=== PATIENT | female | born 1935 | race American Indian/Alaskan Native ===

== ENCOUNTER 2019-06-05 19:22 | Observation (INO) | payer MEDICARE ==
[2019-06-05] MEDS ORDERED: ASPIRIN 325 MG TAB PO ONE (20:36)
--- NOTE | 2019-06-05 20:38 | Event Note ---
ED Screening Note Date of service: 06/05/19 Time: 20:34 ED Screening Note: This is a 83 y.o. F. that presents to the ER with left sided chest pain since last night. PMH DM2, HLD, CHF, and HTN Reports pain as sharp and radiating to LUE. She took pain medication w/o no improvement of pain. This initial assessment/diagnostic orders/clinical plan/treatment(s) is/are subject to change based on patients health status, clinical progression and re- assessment by fellow clinical providers in the ED. Further treatment and workup at subsequent clinical providers discretion. Patient/guardian urged not to elope from the ED as their condition may be serious if not clinically assessed and managed. Initial orders include: Labs, EKG, & CXR
--- NOTE | 2019-06-05 21:31 | XRay Report ---
CHEST 1 VIEW 9:05 PM INDICATION / CLINICAL INFORMATION: Left chest pain for 2 days. COMPARISON: None available. FINDINGS: SUPPORT DEVICES: None. HEART / MEDIASTINUM: The heart size and pulmonary vasculature are normal. There is mild aortic tortuo sity without aneurysm. LUNGS / PLEURA: There is mild linear opacity in the right lower lung. The lungs are otherwise clear. No pneumothorax. ADDITIONAL FINDINGS: No significant additional findings. IMPRESSION: Mild right basilar subsegmental atelectasis. Signer Name: Vinod Morales MD Signed: 06/05/2019 9:26 PM Workstation Name: [id number]
[2019-06-05 22:02] LABS: Basophils # (Auto) 0.1 K/mm3 (0.0-0.1); Basophils % (Auto) 1.2 % (0.0-1.8); Eosinophils # (Auto) 0.2 K/mm3 (0.0-0.4); Eosinophils % (Auto) 4.5 % (0.0-4.3); Hematocrit 41.6 % (30.3-42.9); Hemoglobin 13.2 gm/dl (10.1-14.3); Lymphocytes # (Auto) 2.1 K/mm3 (1.2-5.4); Lymphocytes % (Auto) 40.8 % (13.4-35.0); Mean Corpuscular HGB Conc 32 % (30-34); Mean Corpuscular Volume 87 fl (79-97); Monocytes # (Auto) 0.5 K/mm3 (0.0-0.8); Monocytes % (Auto) 9.8 % (0.0-7.3); Platelet Count 199 K/mm3 (140-440); Red Blood Count 4.77 M/mm3 (3.65-5.03); Red Cell Distribution Width 15.5 % (13.2-15.2)
[2019-06-05 22:25] LABS: BUN/Creatinine Ratio 22; Blood Urea Nitrogen 20 mg/dL (7-17); Calcium 9.3 mg/dL (8.4-10.2); Hemolysis Index 5
[2019-06-05] MEDS ORDERED: ONDANSETRON 4 MG/2 ML INJ IV ONE (22:51)
[2019-06-05] MEDS ORDERED: fentaNYL 100 MCG/2 ML INJ IV ONE (22:51)
[2019-06-05] MEDS ORDERED: cloNIDine 0.2 MG TAB PO ONE (22:51)
[2019-06-05] MEDS ORDERED: NITROGLYCERIN 2% OINT 1 GM TP ONE (22:51)
--- NOTE | 2019-06-05 22:55 | Emergency Department Report ---
HPI - General Chief Complaint: Chest Pain Time Seen by Provider: 06/05/19 20:34 - HPI HPI: Room 3 The patient is an 83-year-old female presenting with chief complaint of chest pain. The patient states for past 2 days she's had a constant pain in her left chest described as sharp in nature and radiating to the left upper extremity. Patient denies shortness of breath, nausea/vomiting or diaphoresis. The patient currently gives her pain score of 7/10. Patient states she's never had a stress test or cardiac catheterization Location: [See above] Duration: [See above] Quality: [See above] Severity: [See above] Timing: [See above] Context: [See above] Modifying factors: [See above] Associated signs and symptoms: [see above] ED Past Medical Hx - Past Medical History Previous Medical History?: Yes Hx Diabetes: Yes Additional medical history: cardiomyopathy - Surgical History Past Surgical History?: No - Family History Family history: no significant - Social History Smoking Status: Never Smoker Substance Use Type: None - Medications Home Medications: Home Medications Medication Instructions Recorded Confirmed Last Taken Type Insulin NPH Hum/Reg Insulin Hm 17 unit SQ BID 12/22/18 12/22/18 Unknown History [Novolin 70-30 Flexpen] Aspirin [Aspirin BABY CHEW TAB] 81 mg PO QDAY #30 tab.chew 12/24/18 Unknown Rx AtorvaSTATin [Lipitor] 20 mg PO QHS #30 tablet 12/24/18 Unknown Rx Pantoprazole [Protonix TAB] 40 mg PO QDAY #30 tablet 12/24/18 Unknown Rx ED Review of Systems ROS: Stated complaint: CHEST PAIN Other details as noted in HPI Constitutional: denies: diaphoresis Eyes: denies: eye pain ENT: denies: throat pain Respiratory: denies: shortness of breath Cardiovascular: chest pain Endocrine: no symptoms reported Gastrointestinal: denies: nausea, vomiting Genitourinary: denies: dysuria Musculoskeletal: denies: back pain Neurological: denies: headache Physical Exam - Physical Exam Vital Signs: Vital Signs 06/05/19 06/05/19 19:27 20:35 Temperature 98.3 F 98.3 F Pulse Rate 89 86 Respiratory 18 18 Rate Blood Pressure 173/90 173/90 O2 Sat by Pulse 99 99 Oximetry Physical Exam: GENERAL: The patient is well-developed well-nourished female lying on stretcher not appearing to be in acute distress. [] HEENT: Normocephalic. Atraumatic. Extraocular motions are intact. Patient has moist mucous membranes. NECK: Supple. Trachea midline CHEST/LUNGS: Clear to auscultation. There is no respiratory distress noted. HEART/CARDIOVASCULAR: Regular. There is no tachycardia. There is no gallop rub or murmur. 2+ radial pulses bilaterally ABDOMEN: Abdomen is soft, nontender. Patient has normal bowel sounds. There is no abdominal distention. SKIN: There is no rash. There is no diaphoresis. NEURO: The patient is awake, alert, and oriented. The patient is cooperative. The patient has normal speech MUSCULOSKELETAL: There is no evidence of acute injury. ED Course Vital Signs 06/05/19 06/05/19 19:27 20:35 Temperature 98.3 F 98.3 F Pulse Rate 89 86 Respiratory 18 18 Rate Blood Pressure 173/90 173/90 O2 Sat by Pulse 99 99 Oximetry ED Medical Decision Making - Lab Data Result diagrams: 06/05/19 21:26 06/05/19 21:26 Laboratory Tests 06/05/19 06/05/19 21:26 21:26 WBC 5.3 RBC 4.77 Hgb 13.2 Hct 41.6 MCV 87 MCH 28 MCHC 32 RDW 15.5 H Plt Count 199 Lymph % (Auto) 40.8 H [place] % (Auto) 9.8 H Eos % (Auto) 4.5 H Baso % (Auto) 1.2 Lymph # 2.1 [place] # 0.5 Eos # 0.2 Baso # 0.1 Seg Neutrophils % 43.7 Seg Neutrophils # 2.3 Sodium 139 Potassium 5.1 H Chloride 101.8 Carbon Dioxide 28 Anion Gap 14 BUN 20 H Creatinine 0.9 Estimated GFR > 60 BUN/Creatinine Ratio 22 Glucose 182 H Calcium 9.3 Troponin T < 0.010 - EKG Data -: EKG Interpreted by Me EKG shows normal: sinus rhythm Rate: normal - EKG Data When compared to previous EKG there are: previous EKG unavailable Interpretation: other (no ischemic changes seen) - Radiology Data Radiology results: report reviewed (chest x-ray), image reviewed (chest x-ray) interpreted by me: Chest x-ray-right lower lobe atelectasis. No pneumothorax [facility] [address] [place] [address] XRay Report Signed Patient: KM WOODARD MR#: [id number] 89 : 1935 Acct:[id number] Age/Sex: 83 / F ADM Date: 06/05/19 Loc: ED Attending Dr: Ordering Physician: ZOIE AHUMADA Date of Service: 06/05/19 Procedure(s): XR chest 1V ap Accession Number(s): [id number] cc: ZOIE AHUMADA Fluoro Time In Minutes: CHEST 1 VIEW 9:05 PM INDICATION / CLINICAL INFORMATION: Left chest pain for 2 days. COMPARISON: None available. FINDINGS: SUPPORT DEVICES: None. HEART / MEDIASTINUM: The heart size and pulmonary vasculature are normal. There is mild aortic tortuosity without aneurysm. LUNGS / PLEURA: There is mild linear opacity in the right lower lung. The lungs are otherwise clear. No pneumothorax. ADDITIONAL FINDINGS: No significant additional findings. IMPRESSION: Mild right basilar subsegmental atelectasis. Signer Name: Vinod Morales MD Signed: 06/05/2019 9:26 PM Workstation Name: [id number] Transcribed By: RT Dictated By: Vinod Morales MD Electronically Authenticated By: Vinod Morales MD Signed Date/Time: 06/05/192125 DD/ 24 TD/TT: - Differential Diagnosis ACS, pericarditis, GERD Critical care attestation.: If time is entered above; I have spent that time in minutes in the direct care of this critically ill patient, excluding procedure time. ED Disposition Clinical Impression: Chest pain Disposition: OP ADMIT IP TO THIS HOSP Is pt being admited?: Yes Does the pt Need Aspirin: Yes Condition: Fair Instructions: Chest Pain (ED) Referrals: PRIMARY CARE, [Primary Care Provider] - 3-5 Days Time of Disposition: 23:00 (hospitalist paged (Dr Kate)) GAEL score - Gael Score Age > 65: (1) Yes Aspirin use within the Past 7 Days: (1) Yes 3 or more CAD Risk Factors: (0) No 2 or more Angina events in past 24 hrs: (0) No Known CAD with more than 50% Stenosis: (0) No Elevated Cardiac Markers: (0) No ST Deviation Greater than 0.5mm: (0) No
[2019-06-05] MEDS ORDERED: ASPIRIN 325 MG TAB ONE (23:10)
[2019-06-06] MEDS ORDERED: ACETAMINOPHEN 325 MG TAB PO PRN (00:16)
[2019-06-06] MEDS ORDERED: ONDANSETRON 4 MG/2 ML INJ IV PRN (00:16)
[2019-06-06] MEDS ORDERED: MORPHINE 2 MG/1 ML INJ IV PRN (00:16)
[2019-06-06] MEDS ORDERED: SODIUM CHLORIDE 0.9% 1000 ML 1,000 ML IV SCH (01:00)
[2019-06-06] MEDS ORDERED: HYDROcodone/ACETAMINOPHEN 5-325 MG TAB ONE (01:28)
[2019-06-06] MEDS: HYDROcodone/ACETAMINOPHEN 5-325 MG TAB PO PRN ×2 (01:35→13:16)
[2019-06-06] MEDS ORDERED: hydrALAZINE 20 MG/1 ML INJ IV PRN (02:26)
[2019-06-06] MEDS ORDERED: DEXTROSE 50% IN WATER (25GM) 50 ML SYRINGE IV PRN (02:30)
--- NOTE | 2019-06-06 02:38 | History and Physical Report ---
History of Present Illness Date of examination: 06/06/19 Date of admission: 06/06/19 00:16 Chief complaint: Chest pain History of present illness: Patient is a 83-year-old -[place] female with a history of diabetes mellitus type 2 who presented to the ED on account of a day history of left- sided chest pain. She described it as sharp in character, rated 10 over 10, radiates into the left arm and constant in duration. No known aggravating or relieving factors. She has associated lightheadedness. She denies shortness of breath, palpitation, diaphoresis, leg swelling, cough, fever, chills, headaches, nausea, vomiting, syncope or loss of consciousness. No abdominal pain, constipation, diarrhea, dysuria frequency. No known prior history of stress t est. Past History Past Medical History: diabetes, hyperlipidemia Past Surgical History: hysterectomy Social history: no significant social history (she denies tobacco, alcohol or illicit drug use) Family history: other (no known family history of sudden cardiac or heart attack) Medications and Allergies Allergies Allergy/AdvReac Type Severity Reaction Status Date / Time No Known Allergies Allergy Unverified 12/22/18 18:00 Home Medications Medication Instructions Recorded Confirmed Last Taken Type RX: Insulin NPH Hum/Reg Insulin Hm 17 unit SQ BID 12/22/18 06/06/19 Unknown History [Novolin 70-30 Flexpen] RX: AtorvaSTATin [Lipitor] 40 mg PO QHS 06/06/19 06/06/19 Unknown History Active Meds: Active Medications Acetaminophen (Tylenol) 650 mg PO Q4H PRN PRN Reason: Pain MILD(1-3)/Fever >100.5/CAGLE Acetaminophen/Hydrocodone Bitart ([place] 5/325) 1 each PO Q6H PRN PRN Reason: Pain, Moderate (4-6) Last Admin: 06/06/19 01:35 Dose: 1 each Documented by: Atorvastatin Calcium (Lipitor) 40 mg PO QHS BUFFY Dextrose (D50w (25gm) Syringe) 50 ml IV PRN PRN PRN Reason: Hypoglycemia Heparin Sodium (Porcine) (Heparin) 5,000 unit SUB-Q Q12HR BUFFY Hydralazine HCl (Apresoline) 10 mg IV Q4HR PRN PRN Reason: Blood Pressure Sodium Chloride (Nacl 0.9% 1000 Ml) 1,000 mls @ 100 mls/hr IV DIRECT BUFFY Insulin Glargine (Lantus) 10 units SUB-Q QHS BUFFY Insulin Human Lispro (Humalog) 0 unit SUB-Q ACHS BUFFY; Protocol Morphine Sulfate (Morphine) 1 mg IV Q4H PRN PRN Reason: Pain, Moderate (4-6) Ondansetron HCl (Zofran) 4 mg IV Q8H PRN PRN Reason: Nausea And Vomiting Sodium Chloride (Sodium Chloride Flush Syringe 10 Ml) 10 ml IV BID BUFFY Sodium Chloride (Sodium Chloride Flush Syringe 10 Ml) 10 ml IV PRN PRN PRN Reason: LINE FLUSH Review of Systems All systems: negative (all other systems reviewed with the patient and are negative unless otherwise stated above) Exam - Constitutional Vitals: Temp Pulse Resp BP Pulse Ox 98.5 F 57 L 18 156/72 96 06/05/19 22:40 06/06/19 01:01 06/06/19 01:35 06/06/19 01:01 06/06/19 01:01 General appearance: Present: no acute distress, well-nourished - EENT Eyes: Present: PERRL, EOM intact ENT: hearing intact, clear oral mucosa - Neck Neck: Present: supple, normal ROM - Respiratory Respiratory effort: normal Respiratory: bilateral: CTA - Cardiovascular Rhythm: regular Heart Sounds: Present: S1 & S2. Absent: rub, click - Extremities Extremities: pulses symmetrical Extremity abnormal: edema (in BLE) Peripheral Pulses: within normal limits - Abdominal General gastrointestinal: Present: soft, non-tender, non-distended, normal bowel sounds Female genitourinary: Present: deferred - Rectal Rectal Exam: deferred - Integumentary Integumentary: Present: clear, warm, dry - Musculoskeletal Musculoskeletal: gait normal, strength equal bilaterally - Psychiatric Psychiatric: appropriate mood/affect, intact judgment & insight - Neurologic Neurologic: CNII-XII intact, moves all extremities Results - Labs CBC & Chem 7: 06/05/19 21:26 06/05/19 21:26 Labs: Laboratory Last Values WBC 5.3 K/mm3 (4.5-11.0) 06/05/19 21:26 RBC 4.77 M/mm3 (3.65-5.03) 06/05/19 21:26 Hgb 13.2 gm/dl (10.1-14.3) 06/05/19 21:26 Hct 41.6 % (30.3-42.9) 06/05/19 21:26 MCV 87 fl (79-97) 06/05/19 21:26 MCH 28 pg (28-32) 06/05/19 21:26 MCHC 32 % (30-34) 06/05/19 21:26 RDW 15.5 % (13.2-15.2) H 06/05/19 21:26 Plt Count 199 K/mm3 (140-440) 06/05/19 21:26 Lymph % (Auto) 40.8 % (13.4-35.0) H 06/05/19 21:26 [place] % (Auto) 9.8 % (0.0-7.3) H 06/05/19 21:26 Eos % (Auto) 4.5 % (0.0-4.3) H 06/05/19 21:26 Baso % (Auto) 1.2 % (0.0-1.8) 06/05/19 21:26 Lymph # 2.1 K/mm3 (1.2-5.4) 06/05/19 21:26 [place] # 0.5 K/mm3 (0.0-0.8) 06/05/19 21:26 Eos # 0.2 K/mm3 (0.0-0.4) 06/05/19 21:26 Baso # 0.1 K/mm3 (0.0-0.1) 06/05/19 21:26 Seg Neutrophils % 43.7 % (40.0-70.0) 06/05/19 21:26 Seg Neutrophils # 2.3 K/mm3 (1.8-7.7) 06/05/19 21:26 Sodium 139 mmol/L (137-145) 06/05/19 21:26 Potassium 5.1 mmol/L (3.6-5.0) H 06/05/19 21:26 Chloride 101.8 mmol/L (98-107) 06/05/19 21:26 Carbon Dioxide 28 mmol/L (22-30) 06/05/19 21:26 14 mmol/L 06/05/19 21:26 BUN 20 mg/dL (7-17) H 06/05/19 21:26 0.9 mg/dL (0.7-1.2) 06/05/19 21:26 Estimated GFR > 60 ml/min 06/05/19 21:26 22 % 06/05/19 21:26 Glucose 182 mg/dL (65-100) H 06/05/19 21:26 Calcium 9.3 mg/dL (8.4-10.2) 06/05/19 21:26 < 0.010 ng/mL (0.00-0.029) 06/05/19 23:30 Assessment and Plan Assessment and plan: Acute chest pain, rule out ACS -Chest pain pathway -Further evaluation with stress test in a.m. DM2 with hyperglycemia -On SSI and Lantus Mild hyperkalemia -On IV fluid, will monitor level Elevated blood pressure without prior diagnosis of hypertension -on PRN IV Hydralazine Hyperlipidemia -cont statin DVT prophylaxis with heparin Disposition: Patient will be admitted to observation status with plan for disc harge if stress test is negative Time spent: 35 minutes
[2019-06-06] MEDS: INSULIN LISPRO 100 UNIT/ML SUB-Q SCH ×4 (08:43→21:16)
[2019-06-06] MEDS: HEPARIN 5,000 UNIT/1 ML VIAL SUB-Q SCH ×2 (09:42→21:15)
--- NOTE | 2019-06-06 10:10 | Progress Note ---
Assessment and Plan Assessment and plan: Patient is a 83-year-old -[place] female with a history of diabetes mellitus type 2 who presented to the ED on account of a day history of left- sided chest pain. She described it as sharp in character, rated 10 over 10, radiates into the left arm and constant in duration. No known aggravating or relieving factors. She has associated lightheadedness. She denies shortness of breath, palpitation, diaphoresis, leg swelling, cough, fever, chills, headaches, nausea, vomiting, syncope or loss of consciousness. No abdominal pain, constipation, diarrhea, dysuria frequency. No known prior history of stress test. Acute chest pain, rule out ACS -Chest pain pathway -Further evaluation with stress test in a.m. DM2 with hyperglycemia -On SSI and Lantus Mild hyperkalemia -On IV fluid, will monitor level Elevated blood pressure without prior diagnosis of hypertension -on PRN IV Hydralazine Hyperlipidemia -cont statin DVT prophylaxis with heparin Disposition: Patient will be admitted to observation status with plan for discharge if stress test is negative Prolonged inpatient services 35 minutes History Interval history: Patient was seen and examined. Follow-up on current diagnosis of chest pains. No overnight events reported to me. Patient denies any shortness breath, nausea/vomiting or severe headaches. Imaging, nursing note, chart, labs and old chart reviewed. Discussed with patient. Hospitalist Physical - Physical exam Narrative exam: Gen: WDWN, NAD, Awake, Alert, Orientated HEENT: NCAT, EOMI, PERRL, OP Clear Neck: supple, no adenopathy, no thyromegaly, no JVD CVS/Heart: RRR, normal S1S2, pulses present bilaterally Chest/Lungs: CTA B, Symmetrical chest expansion, good air entry bilaterally, reproducible left chest wall tenderness GI/Abdomen: soft, NTND, good bowel sounds, no guarding or rebound /Bladder: no suprapubic tenderness, no CVA or paraspinal tenderness Extermity/Skin: no c/c/e, no obvious rash MSK: FROM x 4 Neuro: CN 2-12 grossly intact, no new focal deficits Psych: calm - Constitutional Vitals: Temp Pulse Resp BP Pulse Ox 98.0 F 53 L 18 147/51 98 06/06/19 08:01 06/06/19 08:01 06/06/19 08:01 06/06/19 08:01 06/06/19 08:01 General appearance: Present: no acute distress, well-nourished Results - Labs CBC & Chem 7: 06/05/19 21:26 06/05/19 21:26 Labs: Laboratory Last Values WBC 5.3 K/mm3 (4.5-11.0) 06/05/19 21:26 RBC 4.77 M/mm3 (3.65-5.03) 06/05/19 21:26 Hgb 13.2 gm/dl (10.1-14.3) 06/05/19 21:26 Hct 41.6 % (30.3-42.9) 06/05/19 21: MCV 87 fl (79-97) 06/05/19 21:26 MCH 28 pg (28-32) 06/05/19 21: MCHC 32 % (30-34) 06/05/19 21: RDW 15.5 % (13.2-15.2) H 06/05/19 21:26 Plt Count 199 K/mm3 (140-440) 06/05/19 21:26 Lymph % (Auto) 40.8 % (13.4-35.0) H 06/05/19 21:26 [place] % (Auto) 9.8 % (0.0-7.3) H 06/05/19 21:26 Eos % (Auto) 4.5 % (0.0-4.3) H 06/05/19 21:26 Baso % (Auto) 1.2 % (0.0-1.8) 06/05/19 21:26 Lymph # 2.1 K/mm3 (1.2-5.4) 06/05/19 21:26 [place] # 0.5 K/mm3 (0.0-0.8) 06/05/19 21:26 Eos # 0.2 K/mm3 (0.0-0.4) 06/05/19 21:26 Baso # 0.1 K/mm3 (0.0-0.1) 06/05/19 21:26 Seg Neutrophils % 43.7 % (40.0-70.0) 06/05/19 21:26 Seg Neutrophils # 2.3 K/mm3 (1.8-7.7) 06/05/19 21:26 Sodium 139 mmol/L (137-145) 06/05/19 21:26 Potassium 5.1 mmol/L (3.6-5.0) H 06/05/19 21:26 Chloride 101.8 mmol/L (98-107) 06/05/19 21:26 Carbon Dioxide 28 mmol/L (22-30) 06/05/19 21:26 14 mmol/L 06/05/19 21:26 BUN 20 mg/dL (7-17) H 06/05/19 21:26 0.9 mg/dL (0.7-1.2) 06/05/19 21:26 Estimated GFR > 60 ml/min 06/05/19 21:26 22 % 06/05/19 21:26 Glucose 182 mg/dL (65-100) H 06/05/19 21:26 POC Glucose 199 (70-105) H 06/06/19 08:44 Calcium 9.3 mg/dL (8.4-10.2) 06/05/19 21:26 < 0.010 ng/mL (0.00-0.029) 06/06/19 03:45 Active Medications - Current Medications Current Medications: Generic Name Dose Route Start Last Admin Trade Name Freq PRN Reason Stop Dose Admin Acetaminophen 650 mg 06/06/19 00:16 Tylenol PO Q4H PRN Pain MILD(1-3)/Fever >100.5/CAGLE Acetaminophen/Hydrocodone Bitart 1 each 06/06/19 00:16 06/06/19 01:35 [place] 5/325 PO 1 each Q6H PRN Administration Pain, Moderate (4-6) Atorvastatin Calcium 40 mg 06/06/19 22:00 Lipitor PO QHS BUFFY Dextrose 50 ml 06/06/19 02:30 D50w (25gm) Syringe IV PRN PRN Hypoglycemia Heparin Sodium (Porcine) 5,000 unit 06/06/19 10:00 06/06/19 09:42 Heparin SUB-Q 5,000 unit Q12HR BUFFY Administration Hydralazine HCl 10 mg 06/06/19 02:26 Apresoline IV Q4HR PRN Blood Pressure Sodium Chloride 1,000 mls @ 100 mls/hr 06/06/19 01:00 06/06/19 05:41 Nacl 0.9% 1000 Ml IV 100 mls/hr DIRECT BUFFY Administration Insulin Glargine 10 units 06/06/19 22:00 Lantus SUB-Q QHS BUFFY Insulin Human Lispro 0 unit 06/06/19 07:30 06/06/19 08:43 Humalog SUB-Q 2 unit ACHS BUFFY Administration Protocol Morphine Sulfate 1 mg 06/06/19 00:16 Morphine IV Q4H PRN Pain, Moderate (4-6) Ondansetron HCl 4 mg 06/06/19 00:16 Zofran IV Q8H PRN Nausea And Vomiting Sodium Chloride 10 ml 06/06/19 10:00 06/06/19 09:42 Sodium Chloride Flush Syringe 10 Ml IV 10 ml BID BUFFY Administration Sodium Chloride 10 ml 06/06/19 00:16 Sodium Chloride Flush Syringe 10 Ml IV PRN PRN LINE FLUSH
[2019-06-06] MEDS: INSULIN GLARGINE 100 UNITS/ML SUB-Q SCH (21:15)
[2019-06-07 06:46] LABS: BUN/Creatinine Ratio 20; Blood Urea Nitrogen 16 mg/dL (7-17); Calcium 8.5 mg/dL (8.4-10.2); Hemolysis Index 10
[2019-06-07] MEDS: INSULIN LISPRO 100 UNIT/ML SUB-Q SCH ×4 (09:14→22:00)
[2019-06-07] MEDS: HEPARIN 5,000 UNIT/1 ML VIAL SUB-Q SCH ×2 (10:55→23:00)
--- NOTE | 2019-06-07 15:44 | Consultation ---
History of Present Illness Consult date: 06/07/19 Consult reason: chest pain History of present illness: The patient is an 83-year-old woman admitted with chest pain. Labs left-sided chest pain which is of sudden onset, nonexertional and feels like a "spasm". 6 months ago, she was in this hospital for chest pain evaluation, and had a normal Lexiscan thallium stress test. Due to recurrent symptoms, she presented to the emergency room and was referred for admission. EKG is normal sinus rhythm with poor R-wave progression, no acute ischemic changes. The ECG is unchanged from her baseline. Past History Past Medical History: diabetes, hyperlipidemia Past Surgical History: hysterectomy Social history: no significant social history (she denies tobacco, alcohol or illicit drug use) Family history: other (no known family history of sudden cardiac or heart attack) Medications and Allergies Allergies Allergy/AdvReac Type Severity Reaction Status Date / Time No Known Allergies Allergy Unverified 12/22/18 18:00 Home Medications Medication Instructions Recorded Confirmed Last Taken Type Insulin NPH Hum/Reg Insulin Hm 17 unit SQ BID 12/22/18 06/06/19 Unknown History [Novolin 70-30 Flexpen] AtorvaSTATin [Lipitor] 40 mg PO QHS 06/06/19 06/06/19 Unknown History Active Meds: Active Medications Acetaminophen (Tylenol) 650 mg PO Q4H PRN PRN Reason: Pain MILD(1-3)/Fever >100.5/CAGLE Acetaminophen/Hydrocodone Bitart ([place] 5/325) 1 each PO Q6H PRN PRN Reason: Pain, Moderate (4-6) Last Admin: 06/06/19 13:16 Dose: 1 each Documented by: Atorvastatin Calcium (Lipitor) 40 mg PO QHS [facility] Last Admin: 06/06/19 21:15 Dose: 40 mg Documented by: Dextrose (D50w (25gm) Syringe) 50 ml IV PRN PRN PRN Reason: Hypoglycemia Heparin Sodium (Porcine) (Heparin) 5,000 unit SUB-Q Q12HR [facility] Last Admin: 06/07/19 10:55 Dose: 5,000 unit Documented by: Hydralazine HCl (Apresoline) 10 mg IV Q4HR PRN PRN Reason: Blood Pressure Sodium Chloride (Nacl 0.9% 1000 Ml) 1,000 mls @ 100 mls/hr IV DIRECT [facility] Last Admin: 06/06/19 05:41 Dose: 100 mls/hr Documented by: Insulin Glargine (Lantus) 10 units SUB-Q QHS [facility] Last Admin: 06/06/19 21:15 Dose: 10 units Documented by: Insulin Human Lispro (Humalog) 0 unit SUB-Q ACHS [facility]; Protocol Last Admin: 06/07/19 11:45 Dose: 1 unit Documented by: Morphine Sulfate (Morphine) 1 mg IV Q4H PRN PRN Reason: Pain, Moderate (4-6) Ondansetron HCl (Zofran) 4 mg IV Q8H PRN PRN Reason: Nausea And Vomiting Sodium Chloride (Sodium Chloride Flush Syringe 10 Ml) 10 ml IV BID [facility] Last Admin: 06/07/19 10:55 Dose: 10 ml Documented by: Sodium Chloride (Sodium Chloride Flush Syringe 10 Ml) 10 ml IV PRN PRN PRN Reason: LINE FLUSH Review of Systems Cardiovascular: chest pain Physical Examination Vital Signs Temp Pulse Resp BP Pulse Ox 98.3 F 89 18 173/90 99 06/05/19 19:27 06/05/19 19:27 06/05/19 19:27 06/05/19 19:27 06/05/19 19:27 General appearance: no acute distress HEENT: Positive: PERRL Neck: Positive: neck supple Cardiac: Positive: Reg Rate and Rhythm Lungs: Positive: clear to auscultation Neuro: Positive: Grossly Intact Abdomen: Positive: Soft Female genitourinary: deferred Skin: Positive: Clear Extremities: Absent: edema Results 06/05/19 21:26 06/07/19 04:00 Comprehensive Metabolic Panel 06/07/19 Range/Units 04:00 Sodium 141 (137-145) mmol/L Potassium 4.2 (3.6-5.0) mmol/L Chloride 108.5 H (98-107) mmol/L Carbon Dioxide 24 (22-30) mmol/L BUN 16 (7-17) mg/dL Creatinine 0.8 (0.7-1.2) mg/dL Glucose 104 H (65-100) mg/dL Calcium 8.5 (8.4-10.2) mg/dL EKG interpretations - Telemetry EKG Rhythm: Sinus Rhythm Assessment and Plan - Patient Problems (1) Chest pain Current Visit: Yes Status: Acute Plan to address problem: Patient's chest pain is atypical, but due to recurrent chest pain with multiple risk factors in an elderly patient, we will proceed with diagnostic coronary angiography.
[2019-06-07] MEDS ORDERED: SODIUM CHLORIDE 0.9% 500 ML 500 ML IV SCH (16:00)
--- NOTE | 2019-06-07 16:20 | Progress Note ---
Assessment and Plan Assessment and plan: Patient is a 83-year-old -[place] female with a history of diabetes mellitus type 2 who presented to the ED on account of a day history of left- sided chest pain. She described it as sharp in character, rated 10 over 10, radiates into the left arm and constant in duration. No known aggravating or relieving factors. She has associated lightheadedness. She denies shortness of breath, palpitation, diaphoresis, leg swelling, cough, fever, chills, headaches, nausea, vomiting, syncope or loss of consciousness. No abdominal pain, constipation, diarrhea, dysuria frequency. No known prior history of stress test. Acute chest pain, rule out ACS -Chest pain pathway stress cancelled by Cardiology due to stress in December [facility] for recurrent chest pains DM2 with hyperglycemia -On SSI and Lantus Mild hyperkalemia -On IV fluid, will monitor level Elevated blood pressure without prior diagnosis of hypertension -on PRN IV Hydralazine Hyperlipidemia -cont statin DVT prophylaxis with heparin Disposition: continue inpatient care, still having chest pains, [facility] tomorrow History Interval history: Patient was seen and examined. Follow-up on current diagnosis of chest pains, still present on the left side, negative went away, varying intensity. No over night events reported to me. Patient denies any shortness breath, nausea/vomiting or severe headaches. Imaging, nursing note, chart, labs and old chart reviewed. Discussed with patient. at bedside Hospitalist Physical - Physical exam Narrative exam: Gen: WDWN, NAD, Awake, Alert, Orientated HEENT: NCAT, EOMI, PERRL, OP Clear Neck: supple, no adenopathy, no thyromegaly, no JVD CVS/Heart: RRR, normal S1S2, pulses present bilaterally Chest/Lungs: CTA B, Symmetrical chest expansion, good air entry bilaterally, reproducible left chest wall tenderness GI/Abdomen: soft, NTND, good bowel sounds, no guarding or rebound /Bladder: no suprapubic tenderness, no CVA or paraspinal tenderness Extermity/Skin: no c/c/e, no obvious rash MSK: FROM x 4 Neuro: CN 2-12 grossly intact, no new focal deficits Psych: calm - Constitutional Vitals: Temp Pulse Resp BP Pulse Ox 98.2 F 83 18 120/66 96 06/06/19 23:21 06/07/19 10:00 06/07/19 08:35 06/06/19 23:21 06/07/19 08:35 General appearance: Present: no acute distress Results - Labs CBC & Chem 7: 06/05/19 21:26 06/07/19 04:00 Labs: Laboratory Last Values WBC 5.3 K/mm3 (4.5-11.0) 06/05/19 21:26 RBC 4.77 M/mm3 (3.65-5.03) 06/05/19 21:26 Hgb 13.2 gm/dl (10.1-14.3) 06/05/19 21:26 Hct 41.6 % (30.3-42.9) 06/05/19 21: MCV 87 fl (79-97) 06/05/19 21:26 MCH 28 pg (28-32) 06/05/19 21: MCHC 32 % (30-34) 06/05/19 21:26 RDW 15.5 % (13.2-15.2) H 06/05/19 21:26 Plt Count 199 K/mm3 (140-440) 06/05/19 21:26 Lymph % (Auto) 40.8 % (13.4-35.0) H 06/05/19 21:26 Holmes % (Auto) 9.8 % (0.0-7.3) H 06/05/19 21:26 Eos % (Auto) 4.5 % (0.0-4.3) H 06/05/19 21:26 Baso % (Auto) 1.2 % (0.0-1.8) 06/05/19 21:26 Lymph # 2.1 K/mm3 (1.2-5.4) 06/05/19 21:26 Holmes # 0.5 K/mm3 (0.0-0.8) 06/05/19 21:26 Eos # 0.2 K/mm3 (0.0-0.4) 06/05/19 21:26 Baso # 0.1 K/mm3 (0.0-0.1) 06/05/19 21:26 Seg Neutrophils % 43.7 % (40.0-70.0) 06/05/19 21:26 Seg Neutrophils # 2.3 K/mm3 (1.8-7.7) 06/05/19 21:26 Sodium 141 mmol/L (137-145) 06/07/19 04:00 Potassium 4.2 mmol/L (3.6-5.0) 06/07/19 04:00 Chloride 108.5 mmol/L (98-107) H 06/07/19 04:00 Carbon Dioxide 24 mmol/L (22-30) 06/07/19 04:00 Anion Gap 13 mmol/L 06/07/19 04:00 BUN 16 mg/dL (7-17) 06/07/19 04:00 Creatinine 0.8 mg/dL (0.7-1.2) 06/07/19 04:00 Estimated GFR > 60 ml/min 06/07/19 04:00 BUN/Creatinine Ratio 20 % 06/07/19 04:00 Glucose 104 mg/dL (65-100) H 06/07/19 04:00 POC Glucose 188 (70-105) H 06/07/19 12:14 Calcium 8.5 mg/dL (8.4-10.2) 06/07/19 04:00 Troponin T < 0.010 ng/mL (0.00-0.029) 06/06/19 03:45 Active Medications - Current Medications Current Medications: Generic Name Dose Route Start Last Admin Trade Name Freq PRN Reason Stop Dose Admin Acetaminophen 650 mg 06/06/19 00:16 Tylenol PO Q4H PRN Pain MILD(1-3)/Fever >100.5/CAGLE Acetaminophen/Hydrocodone Bitart 1 each 06/06/19 00:16 06/06/19 13:16 [place] 5/325 PO 1 each Q6H PRN Administration Pain, Moderate (4-6) Aspirin 81 mg 06/07/19 17:00 Halfprin Ec PO QDAY BUFFY Atorvastatin Calcium 40 mg 06/06/19 22:00 06/06/19 21:15 Lipitor PO 40 mg QHS BUFFY Administration Dextrose 50 ml 06/06/19 02:30 D50w (25gm) Syringe IV PRN PRN Hypoglycemia Heparin Sodium (Porcine) 5,000 unit 06/06/19 10:00 06/07/19 10:55 Heparin SUB-Q 5,000 unit Q12HR BUFFY Administration Hydralazine HCl 10 mg 06/06/19 02:26 Apresoline IV Q4HR PRN Blood Pressure Sodium Chloride 1,000 mls @ 100 mls/hr 06/06/19 01:00 06/06/19 05:41 Nacl 0.9% 1000 Ml IV 100 mls/hr DIRECT BUFFY Administration Sodium Chloride 500 mls @ 50 mls/hr 06/07/19 16:00 Nacl 0.9% 500 Ml IV 06/08/19 01:59 DIRECT BUFFY Insulin Glargine 10 units 06/06/19 22:00 06/06/19 21:15 Lantus SUB-Q 10 units QHS BUFFY Administration Insulin Human Lispro 0 unit 06/06/19 07:30 06/07/19 11:45 Humalog SUB-Q 1 unit ACHS BUFFY Administration Protocol Morphine Sulfate 1 mg 06/06/19 00:16 Morphine IV Q4H PRN Pain, Moderate (4-6) Ondansetron HCl 4 mg 06/06/19 00:16 Zofran IV Q8H PRN Nausea And Vomiting Sodium Chloride 10 ml 06/06/19 10:00 06/07/19 10:55 Sodium Chloride Flush Syringe 10 Ml IV 10 ml BID BUFFY Administration Sodium Chloride 10 ml 06/06/19 00:16 Sodium Chloride Flush Syringe 10 Ml IV PRN PRN LINE FLUSH
[2019-06-07] MEDS: ASPIRIN EC 81 MG TAB PO SCH (19:17)
[2019-06-07] MEDS: HYDROcodone/ACETAMINOPHEN 5-325 MG TAB PO PRN (20:46)
[2019-06-07] MEDS: INSULIN GLARGINE 100 UNITS/ML SUB-Q SCH (22:00)
[2019-06-08 05:23] VITALS: BP 147/87
[2019-06-08] MEDS: INSULIN LISPRO 100 UNIT/ML SUB-Q SCH (07:30)
[2019-06-08 07:47] LABS: INR 0.97 (0.87-1.13)
[2019-06-08] MEDS ORDERED: HEPARIN/NS 5000 UNIT/500ML 0 ML IR ONE (08:15)
[2019-06-08] MEDS ORDERED: HEPARIN 10,000 UNITS/10 ML VIAL ONE ×2 (08:16→08:21)
[2019-06-08] MEDS ORDERED: fentaNYL 100 MCG/2 ML INJ ONE ×2 (08:16→08:21)
[2019-06-08] MEDS ORDERED: MIDAZOLAM 2 MG/2 ML INJ ONE ×2 (08:16→08:21)
[2019-06-08] MEDS ORDERED: VERAPAMIL 5 MG/2 ML INJ ONE ×2 (08:17→08:21)
[2019-06-08] MEDS ORDERED: NITROGLYCERIN SYRINGE 0 ML ONE (08:17)
[2019-06-08] MEDS ORDERED: LIDOCAINE (2%) 20 MG/1 ML VIAL 20 ML MDV INFILTRATI ONE ×2 (08:17→08:21)
[2019-06-08] MEDS ORDERED: HEPARIN/NS 5000 UNIT/500ML 1,000 ML IR ONE (08:21)
[2019-06-08] MEDS ORDERED: SODIUM CHLORIDE 0.9% 500 ML 500 ML ONE (08:23)
[2019-06-08] MEDS ORDERED: ASPIRIN EC 81 MG TAB PO ONE (08:23)
[2019-06-08] MEDS ORDERED: NITROGLYCERIN SYRINGE 3 ML ONE (10:02)
--- NOTE | 2019-06-08 10:10 | Cardiac Catherization Report ---
CARDIAC CATHETERIZATION REPORT REASON FOR PROCEDURE: Chest pain. The patient continues to complain of recurrent chest pain despite a negative thallium stress test. She was referred for cardiac catheterization. PROCEDURES: 1. Left heart catheterization. 2. Selective left and right coronary angiography. 3. Left ventricle angiography. 4. Sedation time, start 914, end 937. The patient was prepped and draped in a sterile fashion after informed consent. The right radial artery was entered using Seldinger technique followed by placement of a 6-Japanese hydrophilic sheath. Routine radial cocktail was administered via the sheath. A #3.5 left Billie catheter was used for left coronary angiography. A #4 right Billie was used for right coronary angiography. A pigtail catheter was used for left ventricular angiography. The catheters were removed, sheath removed, and hemostasis achieved using manual compression. The patient was returned to the postprocedure unit in stable condition. There were no complications. FINDINGS: HEMODYNAMICS: Left ventricular end-diastolic pressure was 26, following coronary angiography. Ascending aortic pressure was 169/77. There was no significant pressure gradient on pullback across the aortic valve. CORONARY ANGIOGRAPHY: There was mild calcification of the aortic root noted. The left main coronary artery was free of significant disease. The left anterior descending artery contained mild luminal irregularities in its proximal segment, otherwise this vessel and its diagonal branches were angiographically normal. The circumflex artery and its obtuse marginal branches were angiographically normal. The right coronary artery was dominant and similarly free of significant disease. There was normal left ventricular systolic function, ejection fraction greater than 60%. CONCLUSION: 1. Essentially angiographically near normal coronary arteries. 2. Normal left ventricular systolic function, ejection fraction 60%. RECOMMENDATION: Risk factor modification and medical therapy. JOB# [id number] CA/NTS
--- NOTE | 2019-06-08 10:29 | Event Note ---
Date: 06/08/19 Cardiac catheterization was completed the right radial approach. We found essentially angiographically normal coronary arteries, normal left ventricle systolic function with ejection fraction greater than 60%. No further cardiac workup is indicated, patient is stable for cardiac discharge. If any further chest pain, we will defer to internal medicine for workup of noncardiac pain.
[2019-06-08] MEDS: ASPIRIN EC 81 MG TAB PO SCH (11:25)
[2019-06-08] MEDS: HEPARIN 5,000 UNIT/1 ML VIAL SUB-Q SCH (11:26)
--- NOTE | 2019-06-08 13:41 | Discharge Summary ---
Providers - Providers Date of Admission: 06/06/19 00:16 Date of discharge: 06/08/19 Attending physician: CAMI LAY 06/07/19 08:56 Consult to Physician [CONS] Routine Comment: Consulting Provider: GABRIELA PASTRANA Physician Instructions: Reason For Exam: Recurrent Chest pains 06/08/19 10:29 Consult to Cardiac Rehabilitation [CONS] Routine Reason For Exam: Cardiac Rehab Evaluation Hospitalization Reason for admission: CP Condition: Fair Pertinent studies: [facility] Hospital course: Patient was admitted to telemetry floor Cardiology consult was obtained with [facility] Troponin 2 negative Patient was scheduled for left heart cardiac catheterization. As the patient had a stress test 6 months ago which was stated as normal Cardiology decided to do left heart cardiac catheterization which was performed this morning and patient was informed to have normal coronaries Patient is medically stable for discharge and the patient was cleared for discharge. Patient states that she still has some left upper chest pain. This is non-cardiac etiology as the patient has moderate tenderness over the left up per chest wall. she is medically stable for discharge Disposition: TO HOME OR SELFCARE Time spent for discharge: 34 min - Discharge Diagnoses (1) Type 2 diabetes mellitus Status: Chronic Qualifiers: Diabetes mellitus nursing home insulin use: without ad terminal makeup operator use Diabetes mellitus complication status: without complication Qualified Code(s): E11.9 - Type 2 diabetes mellitus without complications (2) Hypertension Status: Acute Qualifiers: Hypertension type: essential hypertension Qualified Code(s): I10 - Essential (primary) hypertension (3) Hyperkalemia Status: Acute Comment: Resolved (4) Chest pain Status: Acute Qualifiers: Chest pain type: unspecified Qualified Code(s): R07.9 - Chest pain, unspecified Core Measure Documentation - Palliative Care Palliative Care/ Comfort Measures: Not Applicable - Core Measures Any of the following diagnoses?: none Exam - Constitutional Vitals: Temp Pulse Resp BP Pulse Ox 97.9 F 91 H 20 147/87 99 06/08/19 04:42 06/08/19 04:42 06/08/19 04:42 06/08/19 04:42 06/08/19 04:42 General appearance: Present: no acute distress - EENT Eyes: Present: PERRL, EOM intact ENT: hearing intact, clear oral mucosa - Neck Neck: Present: supple, normal ROM - Respiratory Respiratory effort: normal - Cardiovascular Rhythm: regular Heart Sounds: Present: S1 & S2 - Extremities Extremities: No edema - Abdominal General gastrointestinal: Present: soft, non-tender - Rectal Rectal Exam: deferred - Integumentary Integumentary: Present: clear - Musculoskeletal Musculoskeletal: strength equal bilaterally, other (mild left upper chest wall tenderness) - Psychiatric Psychiatric: appropriate mood/affect - Neurologic Neurologic: CNII-XII intact, no focal deficits Plan Activity: no restrictions, advance as tolerated Weight Bearing Status: Full Weight Bearing Diet: regular, low fat, low cholesterol, low salt, diabetic Follow up with: PRIMARY CARE, [Referring] - 3-5 Days
[2019-06-08] MEDS ORDERED: PANTOPRAZOLE 40 MG TAB PO SCH (14:35)
== END 2019-06-08 18:20 | disposition home or self-care (01) ==
LOC: ED 19:22 → 4A 06-06 00:16
PROVIDERS: ADMIT Internal Medicine; ATTEND Internal Medicine
DX: R07.89 Other chest pain (principal); E11.65 Type 2 diabetes mellitus with hyperglycemia; E87.5 Hyperkalemia; R03.0 Elevated blood-pressure reading, without diagnosis of hypertension; E78.5 Hyperlipidemia, unspecified; Z79.4 Long term (current) use of insulin; Z90.710 Acquired absence of both cervix and uterus
CPT/HCPCS: 36415; 71045; 78452; 80048; 82962; 84484; 85025; 85610; 93005; 93010; 93458; 96372; 96374; 96375; 99284; A9270; C1894; G0378; J1644; J2250; J2405; J3010; J7030; J7040; J1815; Q9967

== ENCOUNTER 2019-06-15 16:16 | Emergency (ER) | payer MEDICARE ==
--- NOTE | 2019-06-15 17:05 | XRay Report ---
CHEST 1 VIEW 06/15/2019 4:29 PM INDICATION / CLINICAL INFORMATION: Chest Pain. COMPARISON: Chest x-ray on 06/05/2019. FINDINGS: SUPPORT DEVICES: None. HEART / MEDIASTINUM: Normal heart size. Atherosclerosis in the thoracic aorta. LUNGS / PLEURA: Stable chronic linear scarring in both lower lungs. No pneumothorax. ADDITIONAL FINDINGS: No significant additional findings. IMPRESSION: 1. No acute findings. Signer Name: Jeffery Owen MD Signed: 06/15/2019 5:00 PM Workstation Name: [id number]
--- NOTE | 2019-06-15 17:11 | Emergency Department Report ---
<MESSIMIKI - Last Filed: 06/15/19 17:06> ED Chest Pain HPI - General Chief Complaint: Chest Pain Stated Complaint: CHEST PRESSURE Time Seen by Provider: 06/15/19 16:57 Source: patient, EMS Mode of arrival: Stretcher Limitations: Physical Limitation - History of Present Illness Initial Comments: 83-year-old Afro-English female with past medical history of diabetes and hypercholesterolemia presents to the emergency department complaining of left- sided chest ache and pressure, unknown etiology associated with occasional headache and dizziness. Chest pain has been off and on since the onset with no palliative or provocative factors she reports no fevers, chills, sweats no hemoptysis no hematemesis or hematochezia. No nausea or vomiting. States that her blood sugar has been in normal range she denies any trauma. Cardiac catheterization in 06/08/2019 with the following findings: 1. Normal circumflex, normal right coronary artery, mild calcification of the aortic root, normal left main coronary artery, normal left anterior descending artery, ejection fraction was greater than 60% Severity scale (0 -10): 4 - Related Data Home Medications Medication Instructions Recorded Confirmed Last Taken Insulin NPH Hum/Reg Insulin Hm 17 unit SQ BID 12/22/18 06/06/19 Unknown [Novolin 70-30 Flexpen] AtorvaSTATin [Lipitor] 40 mg PO QHS 06/06/19 06/06/19 Unknown Previous Rx's Medication Instructions Recorded Last Taken Type Acetaminophen [Acetaminophen TAB] 650 mg PO Q4H PRN tablet 06/08/19 Unknown Rx Aspirin EC [Halfprin EC] 81 mg PO QDAY tablet 06/08/19 Unknown Rx AtorvaSTATin [Lipitor] 40 mg PO QHS tablet 06/08/19 Unknown Rx Insulin Glargine [Lantus VIAL] 10 units SUB-Q QHS units 06/08/19 Unknown Rx Sodium Chloride 0.9% Int [Sodium 10 ml IV PRN PRN syringe 06/08/19 Unknown Rx Chloride Flush Syringe 10 ml] Acetaminophen [Acetaminophen TAB] 1,000 mg PO Q6HR PRN #30 tablet 06/15/19 Unknown Rx Allergies Allergy/AdvReac Type Severity Reaction Status Date / Time No Known Allergies Allergy Unverified 12/22/18 18:00 Heart Score - HEART Score History: Slightly suspicious EKG: Non-specific Age: > 65 Risk factors: 1-2 risk factors Troponin: < normal limit HEART Score: 4 ED Review of Systems Comment: All other systems reviewed and negative ED Past Medical Hx - Past Medical History Hx Hypertension: No Hx Heart Attack/AMI: No Hx Congestive Heart Failure: No Hx Diabetes: Yes Hx Deep Vein Thrombosis: No Hx Liver Disease: No Additional medical history: cardiomyopathy - Surgical History Hx Coronary Stent: No Hx Pacemaker: No Hx Internal Defibrillator: No - Social History Smoking Status: Never Smoker - Medications Home Medications: Home Medications Medication Instructions Recorded Confirmed Last Taken Type Insulin NPH Hum/Reg Insulin Hm 17 unit SQ BID 12/22/18 06/06/19 Unknown History [Novolin 70-30 Flexpen] AtorvaSTATin [Lipitor] 40 mg PO QHS 06/06/19 06/06/19 Unknown History Acetaminophen [Acetaminophen TAB] 650 mg PO Q4H PRN tablet 06/08/19 Unknown Rx Aspirin EC [Halfprin EC] 81 mg PO QDAY tablet 06/08/19 Unknown Rx AtorvaSTATin [Lipitor] 40 mg PO QHS tablet 06/08/19 Unknown Rx Insulin Glargine [Lantus VIAL] 10 units SUB-Q QHS units 06/08/19 Unknown Rx Sodium Chloride 0.9% Int [Sodium 10 ml IV PRN PRN syringe 06/08/19 Unknown Rx Chloride Flush Syringe 10 ml] Acetaminophen [Acetaminophen TAB] 1,000 mg PO Q6HR PRN #30 tablet 06/15/19 Unknown Rx ED Physical Exam - General Limitations: Physical Limitation GAEL score - Gael Score Age > 65: (1) Yes Aspirin use within the Past 7 Days: (1) Yes 3 or more CAD Risk Factors: (0) No 2 or more Angina events in past 24 hrs: (0) No Known CAD with more than 50% Stenosis: (0) No Elevated Cardiac Markers: (0) No ST Deviation Greater than 0.5mm: (0) No GAEL Score: 2 ED Disposition Clinical Impression: Chest wall pain Disposition: TO HOME OR SELFCARE Condition: Stable Instructions: Chest Pain (ED) Prescriptions: Acetaminophen [Acetaminophen TAB] 1,000 mg PO Q6HR PRN #30 tablet PRN Reason: pain Referrals: ANGY RDZ MD [Staff Physician] - 3-5 Days Forms: Work/School Release Form(ED) <PRIMITIVO WOODWARD - Last Filed: 06/15/19 22:41> ED Review of Systems ROS: Stated complaint: CHEST PRESSURE Other details as noted in HPI ED Course Vital Signs 06/15/19 06/15/19 06/15/19 16:29 16:30 16:38 Temperature 98.3 F Pulse Rate 96 H 86 Respiratory 19 18 17 Rate Blood Pressure 151/77 Blood Pressure 151/77 [Right] O2 Sat by Pulse 97 97 Oximetry 06/15/19 06/15/19 06/15/19 16:40 16:46 17:00 Temperature Pulse Rate 90 88 Respiratory 17 19 21 Rate Blood Pressure 151/77 151/77 Blood Pressure [Right] O2 Sat by Pulse 97 96 96 Oximetry 06/15/19 06/15/19 06/15/19 17:16 17:30 17:46 Temperature Pulse Rate 71 89 90 Respiratory 18 21 19 Rate Blood Pressure 151/77 151/77 151/77 Blood Pressure [Right] O2 Sat by Pulse 97 96 96 Oximetry 06/15/19 06/15/19 06/15/19 18:00 18:16 18:30 Temperature Pulse Rate 93 H 90 Respiratory 20 20 Rate Blood Pressure 151/77 151/77 151/77 Blood Pressure [Right] O2 Sat by Pulse 96 97 96 Oximetry 06/15/19 06/15/19 06/15/19 18:46 18:47 19:00 Temperature Pulse Rate 97 H 95 H 94 H Respiratory 12 13 16 Rate Blood Pressure 165/87 161/78 Blood Pressure 165/87 [Right] O2 Sat by Pulse 99 99 98 Oximetry 06/15/19 06/15/19 06/15/19 19:16 19:30 19:46 Temperature Pulse Rate 98 H 101 H 89 Respiratory 18 21 13 Rate Blood Pressure 161/78 161/78 161/78 Blood Pressure [Right] O2 Sat by Pulse 98 96 97 Oximetry 06/15/19 06/15/19 06/15/19 20:00 20:16 20:30 Temperature Pulse Rate 90 91 H 94 H Respiratory 21 19 21 Rate Blood Pressure 143/66 143/66 143/66 Blood Pressure [Right] O2 Sat by Pulse 97 97 95 Oximetry 06/15/19 06/15/19 06/15/19 20:46 21:00 21:16 Temperature Pulse Rate 80 76 88 Respiratory 12 13 11 L Rate Blood Pressure 143/66 150/74 150/74 Blood Pressure [Right] O2 Sat by Pulse 95 95 98 Oximetry 06/15/19 21:30 Temperature Pulse Rate 85 Respiratory 11 L Rate Blood Pressure 150/74 Blood Pressure [Right] O2 Sat by Pulse 98 Oximetry ED Medical Decision Making - Lab Data Result diagrams: 06/15/19 16:52 06/15/19 16:52 - EKG Data EKG shows normal: sinus rhythm, axis, intervals, QRS complexes, ST-T waves Rate: normal - EKG Data Interpretation: normal EKG (EKG interpreted by ED attending NSR No ST Elevated OR ), other (left atrial enlargement ) - Radiology Data Radiology results: report reviewed, image reviewed normal cxr no acute findings - Medical Decision Making Patient had negative cardiac workup on 06/08/2019 including cardiac stress test result no vessel conclusion EF greater than 60% Chest pain improve that NSAIDs given in ED chest x-ray is normal no infiltrate no opacities heart score is 2 GAEL score is 1 there is no chest pain or shortness of breath at this time no nausea vomiting no diaphoresis trops are negative 3 , 0.01 , plan DC to home with Tylenol when necessary pain chest wall follow with PCP in 2-3 days patient and family members verbalized agreement and understanding with same patient will be DC'd home in stable condition at this time Critical care attestation.: If time is entered above; I have spent that time in minutes in the direct care of this critically ill patient, excluding procedure time. ED Disposition Is pt being admited?: No Does the pt Need Aspirin: No Time of Disposition: 22:34
[2019-06-15 17:29] LABS: Basophils # (Auto) 0.1 K/mm3 (0.0-0.1); Eosinophils # (Auto) 0.2 K/mm3 (0.0-0.4); Eosinophils % (Auto) 3.9 % (0.0-4.3); Hematocrit 40.9 % (30.3-42.9); Hemoglobin 13.3 gm/dl (10.1-14.3); Lymphocytes # (Auto) 2.1 K/mm3 (1.2-5.4); Mean Corpuscular HGB Conc 33 % (30-34); Mean Corpuscular Volume 86 fl (79-97); Monocytes # (Auto) 0.3 K/mm3 (0.0-0.8); Red Blood Count 4.77 M/mm3 (3.65-5.03)
[2019-06-15 17:40] LABS: BUN/Creatinine Ratio 25; Blood Urea Nitrogen 20 mg/dL (7-17); Calcium 9.6 mg/dL (8.4-10.2); Hemolysis Index 33
[2019-06-15 18:08] LABS: Platelet Count 202 K/mm3 (140-440)
[2019-06-15] MEDS ORDERED: HYDROcodone/ACETAMINOPHEN 5-325 MG TAB PO ONE (19:35)
[2019-06-15 22:52] VITALS: BP 149/69
== END 2019-06-15 23:48 | disposition home or self-care (01) ==
LOC: ED 16:16
DX: R07.89 Other chest pain (principal); R51 Headache; R42 Dizziness and giddiness; E11.9 Type 2 diabetes mellitus without complications; Z79.899 Other long term (current) drug therapy; Z79.4 Long term (current) use of insulin
CPT/HCPCS: 36415; 71045; 80048; 84484; 85025; 93005; 93010

== ENCOUNTER 2021-12-17 12:38 | Emergency (ER) | payer MEDICARE ==
[2021-12-17 14:55] VITALS: BP 156/78
--- NOTE | 2021-12-17 18:47 | Emergency Department Report ---
ED Extremity Problem HPI - General Chief complaint: Extremity Problem,Nontraumatic Stated complaint: SCAN LEG Time Seen by Provider: 12/17/21 18:30 Source: patient Mode of arrival: Wheelchair Limitations: No Limitations - History of Present Illness Initial comments: Patient is an 86-year-old female with history of diabetes presenting the ED with complaint of progressive swelling in both of her lower legs over the past several weeks with associated weeping. She denies any history of CHF, renal disease or DVT. She denies any pain however states that her legs just feel swollen and tight. She denies any shortness of breath or chest pain. MD Complaint: extremity swelling -: week(s) (3) Location: bilateral lower extremity -: No myalgia, No arthralgia, No fever Improves with: nothing Associated Symptoms: denies: chest pain, shortness of breath, fever - Related Data Home Medications Medication Instructions Recorded Confirmed Last Taken Insulin NPH Hum/Reg Insulin Hm 17 unit SQ BID 12/22/18 06/06/19 Unknown [Novolin 70-30 Flexpen] AtorvaSTATin [Lipitor] 40 mg PO QHS 06/06/19 06/06/19 Unknown Previous Rx's Medication Instructions Recorded Last Taken Type Acetaminophen [Acetaminophen TAB] 650 mg PO Q4H PRN tablet 06/08/19 Unknown Rx Aspirin EC [Halfprin EC] 81 mg PO QDAY tablet 06/08/19 Unknown Rx AtorvaSTATin [Lipitor] 40 mg PO QHS tablet 06/08/19 Unknown Rx Insulin Glargine [Lantus VIAL] 10 units SUB-Q QHS units 06/08/19 Unknown Rx Sodium Chloride 0.9% Int [Sodium 10 ml IV PRN PRN syringe 06/08/19 Unknown Rx Chloride Flush Syringe 10 ml] Acetaminophen [Acetaminophen TAB] 1,000 mg PO Q6HR PRN #30 tablet 06/15/19 Unknown Rx Allergies Allergy/AdvReac Type Severity Reaction Status Date / Time No Known Allergies Allergy Unverified 12/22/18 18:00 ED Review of Systems ROS: Stated complaint: SCAN LEG Other details as noted in HPI Constitutional: no symptoms reported Respiratory: no symptoms reported Cardiovascular: denies: chest pain, palpitations Endocrine: no symptoms reported Gastrointestinal: denies: abdominal pain, nausea, vomiting Genitourinary: denies: urgency, dysuria Musculoskeletal: denies: arthralgia, myalgia Skin: lesions. denies: rash Neurological: denies: headache, weakness Psychiatric: denies: anxiety, depression ED Past Medical Hx - Past Medical History Hx Hypertension: No Hx Heart Attack/AMI: No Hx Congestive Heart Failure: No Hx Diabetes: Yes Hx Deep Vein Thrombosis: No Hx Liver Disease: No Additional medical history: cardiomyopathy - Surgical History Hx Coronary Stent: No Hx Pacemaker: No Hx Internal Defibrillator: No - Social History Smoking Status: Never Smoker - Medications Home Medications: Home Medications Medication Instructions Recorded Confirmed Last Taken Type Insulin NPH Hum/Reg Insulin Hm 17 unit SQ BID 12/22/18 06/06/19 Unknown History [Novolin 70-30 Flexpen] AtorvaSTATin [Lipitor] 40 mg PO QHS 06/06/19 06/06/19 Unknown History Acetaminophen [Acetaminophen TAB] 650 mg PO Q4H PRN tablet 06/08/19 Unknown Rx Aspirin EC [Halfprin EC] 81 mg PO QDAY tablet 06/08/19 Unknown Rx AtorvaSTATin [Lipitor] 40 mg PO QHS tablet 06/08/19 Unknown Rx Insulin Glargine [Lantus VIAL] 10 units SUB-Q QHS units 06/08/19 Unknown Rx Sodium Chloride 0.9% Int [Sodium 10 ml IV PRN PRN syringe 06/08/19 Unknown Rx Chloride Flush Syringe 10 ml] Acetaminophen [Acetaminophen TAB] 1,000 mg PO Q6HR PRN #30 tablet 06/15/19 Unknown Rx ED Physical Exam - General Limitations: No Limitations - Head Head exam: Present: atraumatic, normocephalic - Eye Eye exam: Present: normal appearance, EOMI - Respiratory Respiratory exam: Present: normal lung sounds bilaterally. Absent: respiratory distress, wheezes - Cardiovascular Cardiovascular Exam: Present: regular rate, normal rhythm, normal heart sounds - GI/Abdominal GI/Abdominal exam: Present: soft. Absent: distended, tenderness - Rectal Rectal exam: Present: deferred - Extremities Exam Extremities exam: Present: other (2+ pitting edema to both lower legs. Multiple venous stasis wounds with various stages of healing.) - Neurological Exam Neurological exam: Present: alert, oriented X3, CN II-XII intact - Psychiatric Psychiatric exam: Present: normal affect, normal mood - Skin Skin exam: Present: warm, dry, other (Venous stasis wounds as noted above. Discoloration/darkening to distal portion of lower legs) ED Course Vital Signs 12/17/21 14:51 Temperature 98.3 F Pulse Rate 74 Respiratory 18 Rate Blood Pressure 156/78 [Right] O2 Sat by Pulse 99 Oximetry ED Medical Decision Making - Lab Data Result diagrams: 12/17/21 19:16 12/17/21 19:16 - Medical Decision Making Patient presenting the ED with complaint of bilateral lower leg swelling for the past couple of weeks. No known history of CHF or kidney disease. Laboratory evaluation revealed BNP of 1881. Renal function normal. Patient denies any shortness of breath. She eloped prior to receiving her venous Dopplers to rule out DVT. Critical care attestation.: If time is entered above; I have spent that time in minutes in the direct care of this critically ill patient, excluding procedure time. ED Disposition Clinical Impression: Bilateral lower extremity edema Disposition: 07 LEFT AWOL/ELOPED Is pt being admited?: No Condition: Stable Referrals: FRANCISCO DILL MD [Primary Care Provider] - 3-5 Days Time of Disposition: 22:34
[2021-12-17 19:43] LABS: Basophils % (Auto) 0.8 % (0.0-1.8); Eosinophils # (Auto) 0.2 K/mm3 (0.0-0.4); Eosinophils % (Auto) 3.1 % (0.0-4.3); Hematocrit 35.7 % (30.3-42.9); Hemoglobin 11.6 gm/dl (10.1-14.3); Lymphocytes # (Auto) 1.7 K/mm3 (1.2-5.4); Lymphocytes % (Auto) 31.7 % (13.4-35.0); Mean Corpuscular HGB Conc 32 % (30-34); Mean Corpuscular Volume 90 fl (79-97); Monocytes # (Auto) 0.4 K/mm3 (0.0-0.8); Monocytes % (Auto) 7.4 % (0.0-7.3); Platelet Count 204 K/mm3 (140-440); Red Blood Count 3.98 M/mm3 (3.65-5.03)
[2021-12-17 19:56] LABS: Alanine Aminotransferase 15 units/L (7-56); Albumin 3.7 g/dL (3.9-5); BUN/Creatinine Ratio 18; Blood Urea Nitrogen 14 mg/dL (7-17); Calcium 9.3 mg/dL (8.4-10.2); Hemolysis Index 7
== END 2021-12-17 20:15 | disposition left against medical advice (07) ==
LOC: ED 12:38
DX: R60.0 Localized edema (principal); E11.8 Type 2 diabetes mellitus with unspecified complications
CPT/HCPCS: 36415; 80053; 83880; 85025; 99283